=== PATIENT | male | born 1980 | race Caucasian/White ===

== ENCOUNTER 2016-11-21 16:34 | Emergency (ER) | payer OTHER ==
[~2016-11-21] VITALS: Ht 165.1 cm; Wt 90.0 kg
[~2016-11-21 16:34] MED LIST: ALEVE220 MG PO; CLINDAMYCIN HC300 MG PO; CYCLOBENZAPRINE; DOLOPHINE HCL10 MG PO; GABAPENTIN300 MG PO; HYDROCHLOROTHIAZIDE; LISINOPRIL; MOTRIN600 MG PO; NO HOME MEDS; PERCOCET 5/31 TABLET PO; POTASSIUM; SIMVASTATIN; SIMVASTATIN20 MG PO
[2016-11-21 17:14] LABS: HEMATOCRIT 49.2 % (38.0-50.0); MCH 29.5 PG (29.0-34.0); MCHC 33.5 G/DL (30.0-36.0); MCV 87.9 FL (86-99); MEAN PLAT.VOLUME 9.2 uM^3 (9.0-12.4); PLATELET COUNT 310 K/uL (156-360); RBC DIS.WIDTH-CV 13.2 % (11.8-14.6); RBC DIS.WIDTH-SD 42.7 % (39-53)
[2016-11-21 17:15] LABS: WHITE BLOOD COUNT 10.9 K/uL (4.1-10.2)
[2016-11-21 17:22] LABS: CHLORIDE 107 mEq/L (99-109); POTASSIUM 3.9 mEq/L (3.7-5.4); SODIUM 144 mEq/L (136-147)
[2016-11-21 17:23] LABS: GLUCOSE 98 mg/dL (70-99)
[2016-11-21 17:23] LABS: ADD MIUA? YES; BILIRUBIN NEGATIVE; BLOOD MODERATE; COLOR YELLOW ((YELLOW)); GLUCOSE (STRIP) NEGATIVE; KETONES NEGATIVE; LEUKOCYTES SMALL; NITRITE NEGATIVE; PROTEIN (STRIP) 30; SPECIFIC GRAVITY 1.017 (1.000-1.030); UROBILINOGEN 0.2 MG/DL (0.2-1.0)
[2016-11-21 17:25] LABS: ANION GAP 11 MEQ/L (2-14)
[2016-11-21] MEDS ORDERED: MELOXICAM15 MG PO (17:26)
[2016-11-21 17:27] LABS: GFR ESTIMATE (CALCULATED) > 59 mL/min/
[2016-11-21 17:28] LABS: UREA NITROGEN (BUN) 10 mg/dL (9-23)
[2016-11-21 17:29] LABS: BACTERIA NONE SEEN /HPF; EPITHELIAL CELLS RARE /HPF; MUCUS 1+ /LPF; RED BLOOD CELLS 40-50 /HPF (0-5)
[2016-11-21] MEDS ORDERED: TORADOL10 MG PO (19:16)
[2016-11-21 19:36] VITALS: BP 146/97
== END 2016-11-21 19:38 | disposition home or self-care (01) ==
LOC: EME 16:34
PROVIDERS: Physician Assistant
DX: N20.0 Calculus of kidney (principal); E78.5 Hyperlipidemia, unspecified; F17.200 Nicotine dependence, unspecified, uncomplicated; Z87.442 Personal history of urinary calculi
CPT/HCPCS: 74176; 80048; 81003; 85027; 99281; 99284; J1885